=== PATIENT | male | born 1960 | race Caucasian/White ===

== ENCOUNTER 2016-12-02 09:00 | Outpatient (CLI) | payer OTHER ==
[2016-12-02 09:41] LABS: #Basophils 0.1 thou/uL (0.0-0.2); #Eosinphils 0.3 thou/uL (0.0-0.7); #Lymphocytes 2.3 thou/uL (1.20-3.40); #Monocytes 0.7 thou/uL (0.11-0.59); #Neutrophils 4.9 thou/uL (1.40-6.50); %Basophils 0.9 % (0.0-1.0); %Lymphocytes 27.3 % (21.0-51.0); %Monocytes 8.8 % (0.0-10.0); ALT (SGPT) 49 U/L (8-55); AST (SGOT) 23 U/L (5-34); Albumin 4.5 g/dL (3.5-5.0); Alkaline Phosphatase 55 U/L (40-150); Anion Gap 14 mmol/L (10-20); BUN (Urea Nitrogen) 15 mg/dL (8.4-25.7); Bilirubin, Total 0.8 mg/dL (0.2-1.2); Calc. Creatinine Clearance 0 mL/min (70-130); Calcium 9.9 mg/dL (7.8-10.44); Carbon Dioxide 25 mmol/L (22-29); Chloride 107 mmol/L (98-107); Cholesterol 186 mg/dl (< 200 Desired); Estimated GFR-MDRD 83; Globulin 2.6 g/dL (2.4-3.5); Glucose 97 mg/dL (70-105); HDL Cholesterol 37 mg/dL (>60 Neg Risk); Hemoglobin 15.9 g/dL (14.0-18.0); LDL Cholesterol, Calculated 106 mg/dL; Mean Corpuscular HGB CONC 32.3 g/dL (32.0-36.0); Mean Corpuscular Hemoglobin 29.7 pg (27.0-31.0); Mean Corpuscular Volume 91.9 fl (80.0-94.0); Platelet Count 208 thou/uL (130-400); Potassium 4.9 mmol/L (3.5-5.1); Protein, Total 7.1 g/dL (6.0-8.3); RBC Distribution Width 12.8 % (11.5-14.5); Red Blood Cell (RBC) Count 5.36 mill/uL (4.70-6.10); Sodium 141 mmol/L (136-145); Triglycerides 214 mg/dL (Less than 150); White Blood Cell (WBC) Count 8.3 thou/uL (4.8-10.8)
== END 2016-12-02 09:01 | disposition home or self-care (01) ==
LOC: HPCALD 09:00
PROVIDERS: ATTEND Family Medicine
DX: Z12.5 Encounter for screening for malignant neoplasm of prostate (principal); Z13.6 Encounter for screening for cardiovascular disorders; I10 Essential (primary) hypertension
CPT/HCPCS: 36415; 80053; 80061; 85025; G0103

== ENCOUNTER 2019-08-31 11:36 | Outpatient (CLI) | payer OTHER ==
--- NOTE | 2019-08-31 18:29 | RAD ---
RIGHT FOOT THREE VIEWS: 08/31/19 No acute fracture or periosteal reaction was seen. A small bony density at the base of the fifth met atarsal does not appear acute and is most likely old. Some mild degenerative changes are seen in some of the intertarsal joints. Degenerative change is also present in the IP joint of the great toe medi ally. IMPRESSION: No acute finding. POS: HOME
== END 2019-08-31 11:37 | disposition home or self-care (01) ==
LOC: BURRAD 11:36
PROVIDERS: ATTEND Physician Assistant
DX: M79.671 Pain in right foot (principal); M79.89 Other specified soft tissue disorders

== ENCOUNTER 2019-10-07 14:47 | Emergency (ER) | payer OTHER ==
[2019-10-07] MEDS ORDERED: Ketorolac Tromethamine 60 MG/2 ML VIAL ONE (15:10)
[2019-10-07] MEDS ORDERED: predniSONE 20 MG TAB ONE (15:10)
== END 2019-10-07 15:25 | disposition home or self-care (01) ==
LOC: BURERS 14:47
DX: M10.9 Gout, unspecified (principal); I10 Essential (primary) hypertension; F17.200 Nicotine dependence, unspecified, uncomplicated
CPT/HCPCS: 96372; 99283; J1885; J7512

== ENCOUNTER 2020-09-29 03:01 | Emergency (ER) | payer OTHER ==
[2020-09-29] MEDS ORDERED: predniSONE 20 MG TAB ONE (03:35)
== END 2020-09-29 03:48 | disposition home or self-care (01) ==
LOC: BURERS 03:01
DX: M10.9 Gout, unspecified (principal); I10 Essential (primary) hypertension; F17.220 Nicotine dependence, chewing tobacco, uncomplicated; Z79.899 Other long term (current) drug therapy
CPT/HCPCS: 99283; J7512